=== PATIENT | male | born 1935 | race Caucasian/White ===

== ENCOUNTER 2017-07-07 21:12 | Inpatient (IN) | payer OTHER ==
[~2017-07-07] VITALS: Ht 152.4 cm; Wt 49.0 kg
--- NOTE | ~2017-07-07 | HC ---
[facility] [place] [address] CONSULTATION Name: CAMMIE SMITH Mimi Room #: 204-P [facility] IN ..#: [id number] Admission: 07/07/17 Attend Phys: Reddy Santiago Discharge: Date of : 31 Report #: [id number] THIS REPORT FOR: //name// CC: Eyal Santiago REQUESTING PHYSICIAN: Hernando Duncan MD REASON FOR CONSULTATION: Palliative care. HISTORY OF PRESENT ILLNESS: The patient is an 81-year-old male who was initially admitted to the hospital on 07/07/2017, at this time was admitted due to weakness. He was apparently also having altered mental status, decreased appetite, was at this time found to have an ulceration of his right cheek area. He was additionally found to have community-acquired pneumonia versus aspiration pneumonia and lactic acidosis. At this time, the patient was also found to have severe protein-calorie malnutrition. He has had difficulty with delirium as well. Family is present at the time of my interview. The patient was extremely tired and somnolent at this time. Past medical history is significant for coronary artery bypass graft secondary to severe coronary artery disease, history of thyroid surgery. PAST MEDICAL HISTORY: Unknown. PAST SURGICAL HISTORY: As above. SOCIAL HISTORY: History of tobacco abuse. Has at present 2 sons, 1 on phone and 2 daughters. CODE STATUS: DNR. ALLERGIES: No known drug allergies. CURRENT MEDICATIONS: DuoNeb, Zithromax, Rocephin, B12, Lovenox, fentanyl p.r.n. REVIEW OF SYSTEMS: Unable to obtain at this time due to the patient's current medical status. PHYSICAL EXAMINATION: VITAL SIGNS: Temperature 38.6, pulse is 83, respirations 18, blood pressure 111/69, 96% on 2 liters nasal cannula. GENERAL: The patient is in no acute distress. He has generalized cachexia. RESPIRATORY: Lungs are clear. No respiratory distress. No accessory muscle use. Decreased breath sounds are both noted. CARDIOVASCULAR: Regular rate and rhythm without murmur. No apparent edema. ABDOMEN: Soft, nontender to palpation. PSYCHIATRIC: The patient is at this time difficult to assess. [address] [address] CONSULTATION Name: CAMMIE SMITH Room #: 204-P [facility] IN ..#: [id number] Admission: 07/07/17 Attend Phys: Reddy Santiago Discharge: Date of : 31 Report #: [id number] LABORATORY DATA: These include potassium 2.8. Hemoglobin 9.6, white blood cell count 27.1, platelets 106. Creatinine 0.5. ASSESSMENT AND PLAN: 1. Pneumonia, aspiration versus community acquired. At this time, defer to primary team. 2. 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 The patient is not interested in further treatment regarding this. Additionally, he is not able to participate in significant therapeutic interventions in order to achieve a [facility] stay. The patient and family appear to be interested in possible hospice care. In addition, they are interested in home hospice care at the patient's son's house, [place]. I spent approximately 30 minutes in advance care planning, discussing this with them. All questions were answered, appear to be okay with this going forward. This was discussed with manager rn case. 3. Anorexia. The patient is currently on Remeron 7.5 mg at bedtime. I agree with this as an intervention in order to help with his current deficit. 4. Protein calorie malnutrition as above. Please call us for any questions regarding this patient. I believe this plan of care to be appropriate for his care going forward. By: [id number] Jeremie Kapoor DO /nt
--- NOTE | ~2017-07-07 | EKG ---
[address] [address] ELECTROCARDIOGRAM REPORT Name: CAMMIE SMITH Room #: 204-P [facility] IN .R.#: [id number] Admission: 07/07/17 Attend Phys: Juno Kearns MD Discharge: Date of : 31 Report #: [id number] THIS REPORT FOR: //name// [facility] ED Test Date: 2017-07-07 Test Time: 21:41:55 Pat Name: CAMMIE SMITH Department: Room: 204 Gender: M Inset Cutter: GERSON : 1935 Requested By: Broderick Paige Order Number: [id number] MD: Gonzalo Callahan Measurements Intervals [place] Rate: 87 P: 101 NM: 134 QRS: 78 QRSD: 106 T: 257 QT: 366 QTc: 441 Interpretive Statements Sinus rhythm RSR' in V1 or V2, probably normal variant Borderline repolarization abnormality Baseline wander in lead(s) I,II,III,aVL,aVF No previous ECG available for comparison Electronically Signed On 07-08-2017 11:29:26 CDT by Gonzalo Callahan [email or web address] <ELECTRONICALLY SIGNED> By: Gonzalo Callahan MD 07/08/17 1129 40 40 Gonzalo Callahan MD /EPI
--- NOTE | ~2017-07-07 | HC ---
[facility] [place] [address] CONSULTATION Name: CAMMIE SMITH Mimi Room #: 204-P [facility] IN ..#: [id number] Admission: 07/07/17 Attend Phys: Reddy Santiago Discharge: Date of : 31 Report #: [id number] THIS REPORT FOR: //name// CC: Eyal Santiago DATE OF SERVICE: 07/10/2017 REASON FOR CONSULTATION: I was asked to evaluate concerning pneumonia and leukocytosis along with a right neck wound. HISTORY OF PRESENT ILLNESS: The patient is an 81-year-old with change in mental status, who has had progressive decline. He had fallen at home. Found defecating in a cup. He is a smoker of cigarettes. He had a long history of nonhealing wound to the right neck which was biopsied, positive for cancer, suspicious it is a squamous cell carcinoma that the patient desired not to treat. He comes in with left lower lobe pulmonary infiltrate. He has had lymphocytosis as a predominant finding. No fever. He is on 2 liters of oxygen per nasal cannula. He is a smoker of cigarettes. The patient was unable to give me any details of his history. ALLERGIES: None known. MEDICATIONS: As noted on his MAR, now on azithromycin and ceftriaxone. PAST MEDICAL HISTORY: Coronary artery bypass grafting, thyroid surgery, most of which his history is unknown. SOCIAL HISTORY: He is a smoker of cigarettes. No significant alcohol intake. FAMILY HISTORY: Noncontributory. REVIEW OF SYSTEMS: The patient was unable to give me any details. PHYSICAL EXAMINATION: VITAL SIGNS: He was afebrile, hemodynamically stable. He is on 2 liters of oxygen per nasal cannula. GENERAL: He was lying in bed and comfortable. He was hard of hearing. HEENT: He had fairly large ulcerative lesion to his right neck at the arch of the mandible. No large adenopathy. Mouth was unremarkable. LUNGS: Few crackles in the left base posteriorly. HEART: Regular. ABDOMEN: Soft and nontender. No other decubiti noted. LABORATORY STUDIES: Sodium 143, potassium 3.4, bicarbonate 30, creatinine 0.6, albumin at 2.5, bilirubin 1.1, alkaline phosphatase 71, ALT less than 6, [facility] [address] [place] [address] CONSULTATION Name: CAMMIE SMITH Room #: 204-P [facility] IN [facility].#: [id number] Admission: 07/07/17 Attend Phys: Reddy Santiago Discharge: Date of : 31 Report #: [id number] hemoglobin 9. WBC 26.3, platelet count 114,000, 7% neutrophils, 93% lymphocytes. Blood cultures negative. Chest x-ray with hazy left lower lobe infiltrate. CT of the neck, chest, abdomen is pending. IMPRESSION: An 81-year-old with underlying dementia who has had a progressive decline. 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 Unclear if this is leukemic infiltrative disease process in the neck at this point in time. Has pulmonary infiltrate in the left lung. RECOMMENDATION: We will evaluate the left lung further with CAT scan of his chest. We will continue with his antibiotic therapy tonight and reevaluate after his CAT scan. We will await flow cytometry to further evaluate his lymphocytosis. I suspect he will also need biopsy of the skin lesion to confirm the pathology. <ELECTRONICALLY SIGNED> By: Broderick Montoya MD 07/11/17 1206 [id number] Broderick Montoya MD /nt
[2017-07-07 21:13] VITALS: BP 119/90
[2017-07-07 22:33] LABS: RDW 14.4 % (10.5-14.5)
[2017-07-07 22:34] LABS: HEMATOCRIT 36.2 % (42.0-52.0); HEMOGLOBIN 11.9 gm/dL (14.0-18.0); MCH 31.5 pg (26.0-34.0); MCHC 32.9 g/dL (28.0-37.0); MCV 95.7 fL (80.0-100.0); PLATELET COUNT 179 thou/uL (150-400); RBC 3.78 mil/uL (4.50-6.00)
[2017-07-07 22:48] LABS: MANUAL DIFF YES; WBC 48.4 thou/uL (4.0-11.0)
[2017-07-07 22:53] LABS: ANION GAP 7 mmol/L (7-16); BUN 34 mg/dL (7-18); CALCIUM 8.4 mg/dL (8.5-10.1); CHLORIDE 99 mmol/L (98-107); CO2 30 mmol/L (21-32); CREATININE 1.1 mg/dL (0.7-1.3); GLUCOSE 159 mg/dL (74-106); POTASSIUM 3.6 mmol/L (3.5-5.1); SODIUM 136 mmol/L (136-145)
[2017-07-07 23:01] LABS: ALBUMIN 2.5 g/dL (3.4-5.0); ALKALINE PHOSPHATASE 71 U/L (46-116); MAGNESIUM 2.1 mg/dL (1.8-2.4); SGOT 20 U/L (15-37); SGPT < 6 U/L (30-65); TOTAL BILIRUBIN 1.1 mg/dL (<0.1-1.0); TOTAL PROTEIN 5.9 g/dL (6.4-8.2); TROPONIN-I < 0.04 ng/mL (<0.04-0.07)
[2017-07-07 23:26] LABS: ABSOLUTE NEUTROPHILS 2.4 thou/uL (1.4-8.2); TOTAL CELL COUNT 200
[2017-07-07 23:58] VITALS: BP 100/52
[2017-07-08 00:38] VITALS: BP 119/76
[2017-07-08] MEDS ORDERED: TIROSINT125 MCG PO (02:49)
[2017-07-08] MEDS ORDERED: LISINOPRIL5 MG PO (02:49)
[2017-07-08] MEDS ORDERED: LOPRESSOR50 PO (02:49)
[2017-07-08] MEDS ORDERED: LASIX 40 MG TAB40 M2 PO (02:50)
[2017-07-08 04:48] LABS: HEMOGLOBIN 11.7 gm/dL (14.0-18.0)
[2017-07-08 04:49] LABS: HEMATOCRIT 35.2 % (42.0-52.0); MCH 31.5 pg (26.0-34.0); MCHC 33.3 g/dL (28.0-37.0); MCV 94.8 fL (80.0-100.0); RBC 3.72 mil/uL (4.50-6.00); RDW 14.3 % (10.5-14.5)
[2017-07-08 04:53] LABS: WBC 56.2 thou/uL (4.0-11.0)
[2017-07-08 04:59] LABS: CALCIUM 8.1 mg/dL (8.5-10.1); POTASSIUM 3.3 mmol/L (3.5-5.1)
[2017-07-08 11:44] VITALS: BP 87/39
[2017-07-08 15:07] VITALS: BP 102/55
[2017-07-08 20:15] VITALS: BP 95/42
[2017-07-09 03:23] LABS: HEMATOCRIT 28.9 % (42.0-52.0); MCH 31.7 pg (26.0-34.0); MCHC 33.1 g/dL (28.0-37.0); MCV 95.6 fL (80.0-100.0); PLATELET COUNT 127 thou/uL (150-400); RBC 3.03 mil/uL (4.50-6.00); RDW 14.2 % (10.5-14.5)
[2017-07-09 03:24] LABS: HEMOGLOBIN 9.6 gm/dL (14.0-18.0); WBC 27.9 thou/uL (4.0-11.0)
[2017-07-09 03:35] LABS: MANUAL DIFF YES
[2017-07-09 04:30] LABS: ABSOLUTE NEUTROPHILS 2.2 thou/uL (1.4-8.2); TOTAL CELL COUNT 100
[2017-07-09 04:35] VITALS: BP 98/43
[2017-07-09 08:15] VITALS: BP 107/44
[2017-07-09 12:15] VITALS: BP 100/55
[2017-07-09 17:12] VITALS: BP 106/61
[2017-07-09 19:34] VITALS: BP 92/56
[2017-07-10 03:53] LABS: HEMATOCRIT 27.1 % (42.0-52.0); MCH 31.8 pg (26.0-34.0); MCHC 33.3 g/dL (28.0-37.0); MCV 95.5 fL (80.0-100.0); PLATELET COUNT 114 thou/uL (150-400); RBC 2.84 mil/uL (4.50-6.00); RDW 14.6 % (10.5-14.5); WBC 26.3 thou/uL (4.0-11.0)
[2017-07-10 03:54] LABS: MANUAL DIFF YES
[2017-07-10 04:52] VITALS: BP 108/62
[2017-07-10 06:59] LABS: ABSOLUTE NEUTROPHILS 1.8 thou/uL (1.4-8.2); TOTAL CELL COUNT 100
[2017-07-10 07:00] LABS: LARGE PLATELETS OCCASIONAL
[2017-07-10 08:21] LABS: CALCIUM 7.2 mg/dL (8.5-10.1); CREATININE 0.6 mg/dL (0.7-1.3); MAGNESIUM 1.8 mg/dL (1.8-2.4); POTASSIUM 3.4 mmol/L (3.5-5.1)
[2017-07-10 08:30] VITALS: BP 96/56
[2017-07-10 12:12] VITALS: BP 106/65
[2017-07-10 16:05] VITALS: BP 109/63
[2017-07-10 19:45] VITALS: BP 118/71
[2017-07-11 04:41] VITALS: BP 111/51
[2017-07-11 08:10] VITALS: BP 101/56
[2017-07-11 09:04] LABS: HEMATOCRIT 30.5 % (42.0-52.0); HEMOGLOBIN 10.1 gm/dL (14.0-18.0); MCH 31.5 pg (26.0-34.0); MCHC 33.2 g/dL (28.0-37.0); MCV 94.9 fL (80.0-100.0); RBC 3.22 mil/uL (4.50-6.00); RDW 14.7 % (10.5-14.5); WBC 27.6 thou/uL (4.0-11.0)
[2017-07-11 09:17] LABS: CALCIUM 7.1 mg/dL (8.5-10.1); CREATININE 0.6 mg/dL (0.7-1.3)
[2017-07-11 15:13] VITALS: BP 102/58
[2017-07-11 20:00] VITALS: BP 104/62
[2017-07-12 04:00] VITALS: BP 115/66
[2017-07-12 04:02] LABS: HEMATOCRIT 28.4 % (42.0-52.0); HEMOGLOBIN 9.6 gm/dL (14.0-18.0); MCH 31.8 pg (26.0-34.0); MCHC 33.7 g/dL (28.0-37.0); MCV 94.4 fL (80.0-100.0); RBC 3.01 mil/uL (4.50-6.00); RDW 14.7 % (10.5-14.5); WBC 27.1 thou/uL (4.0-11.0)
[2017-07-12 04:03] LABS: CALCIUM 6.7 mg/dL (8.5-10.1); CREATININE 0.5 mg/dL (0.7-1.3)
[2017-07-12 04:05] LABS: POTASSIUM 2.5 mmol/L (3.5-5.1)
[2017-07-12 07:40] VITALS: BP 107/67
[2017-07-12 11:18] VITALS: BP 98/62
[2017-07-12 15:42] VITALS: BP 111/69
[2017-07-12 19:55] VITALS: BP 110/61
[2017-07-13 03:11] VITALS: BP 112/62
[2017-07-13 08:09] VITALS: BP 117/72
[2017-07-13 10:37] LABS: HEMATOCRIT 28.7 % (42.0-52.0); HEMOGLOBIN 9.7 gm/dL (14.0-18.0); MCH 32.1 pg (26.0-34.0); MCHC 33.9 g/dL (28.0-37.0); MCV 94.6 fL (80.0-100.0); RBC 3.03 mil/uL (4.50-6.00); RDW 14.5 % (10.5-14.5); WBC 26.5 thou/uL (4.0-11.0)
[2017-07-13 10:55] LABS: CALCIUM 6.9 mg/dL (8.5-10.1); CREATININE 0.5 mg/dL (0.7-1.3); POTASSIUM 4.6 mmol/L (3.5-5.1)
[2017-07-13 14:55] VITALS: BP 117/72
[2017-07-13 14:56] VITALS: BP 117/72
[2017-07-13 19:38] VITALS: BP 105/53
[2017-07-14 04:08] VITALS: BP 119/53
[2017-07-14 04:14] LABS: HEMATOCRIT 28.6 % (42.0-52.0); HEMOGLOBIN 9.6 gm/dL (14.0-18.0); MCH 31.7 pg (26.0-34.0); MCHC 33.5 g/dL (28.0-37.0); MCV 94.6 fL (80.0-100.0); RBC 3.02 mil/uL (4.50-6.00); RDW 14.7 % (10.5-14.5); WBC 27.1 thou/uL (4.0-11.0)
[2017-07-14 04:21] LABS: CREATININE 0.6 mg/dL (0.7-1.3); POTASSIUM 3.8 mmol/L (3.5-5.1)
[2017-07-14 07:38] VITALS: BP 113/62
[2017-07-14 11:27] VITALS: BP 95/54
[2017-07-14] MEDS ORDERED: AZITHROMYCIN 2250 MG PO (15:03)
[2017-07-14] MEDS ORDERED: CEFDINIR300 MG PO (15:03)
[2017-07-14 15:08] VITALS: BP 99/59
[2017-07-14 15:28] VITALS: BP 117/72
== END 2017-07-14 16:50 | disposition hospice, home (50) | DRG 177 ==
LOC: ER 21:12 → EROBS 23:13 → 2N 23:13
PROVIDERS: Emergency Medicine; Hospitalist; Internal Medicine; Nurse Practitioner Family
DX: J69.0 Pneumonitis due to inhalation of food and vomit (principal); E43 Unspecified severe protein-calorie malnutrition; E87.2 Acidosis; F17.210 Nicotine dependence, cigarettes, uncomplicated; F03.90 Unspecified dementia, unspecified severity, without behavioral disturbance, psychotic disturbance, mood disturbance, and anxiety; I25.10 Atherosclerotic heart disease of native coronary artery without angina pectoris; Z66 Do not resuscitate; L98.499 Non-pressure chronic ulcer of skin of other sites with unspecified severity; C44.40 Unspecified malignant neoplasm of skin of scalp and neck; F32.9 Major depressive disorder, single episode, unspecified; R62.7 Adult failure to thrive; Z51.5 Encounter for palliative care; Z95.1 Presence of aortocoronary bypass graft; Z79.899 Other long term (current) drug therapy; Z68.21 Body mass index [BMI] 21.0-21.9, adult
CPT/HCPCS: 10194